=== PATIENT | female | born 2000 | race Caucasian/White ===

== ENCOUNTER → 2021-12-10 21:50 | Observation (INO) | END | disposition home or self-care (01) | LOC: 1NENULAB | PROVIDERS: ADMIT Obstetrics & Gynecology; ATTEND Obstetrics & Gynecology ==

== ENCOUNTER 2021-12-16 11:35 | Inpatient (IN) ==
[2021-12-16] MEDS ORDERED: Ondansetron 4 MG/2 ML VIAL IVP PRN (11:47)
[2021-12-16] MEDS ORDERED: Metoclopramide 10 MG/2 ML VIAL IVP PRN (11:47)
[2021-12-16] MEDS ORDERED: Famotidine 20 MG/2 ML VIAL IVP PRN (11:47)
[2021-12-16] MEDS ORDERED: Naloxone 0.4 MG/ML INJ IVP PRN (11:47)
[2021-12-16] MEDS ORDERED: Penicillin G Potassium 5,000,000 UNIT in 0.9 % Sodium Chloride Mini Bag 100 ML IVPB ONE (11:49)
[2021-12-16] MEDS ORDERED: Oxytocin 20 units/ LR 1000 mL 20 UNIT/1,000 ML BAG IVC SCH (12:00)
[2021-12-16 12:27] LABS: White Blood Count 16.6 K/mcL (4.3-11.1)
[2021-12-16 12:28] LABS: Basophils % 0.2 %; Eosinophils # 0.1 K/mcL (0.0-0.6); Eosinophils % 0.3 %; Hematocrit 32.9 % (35.3-44.9); Hemoglobin 10.7 g/dL (11.5-15.4); Immature Granulocytes % 0.9 % (0-4); Lymphocytes # 2.2 K/mcL (0.6-4.6); Lymphocytes % 13.5 %; Mean Corpuscular HGB Conc 32.5 g/dL (31.6-35.5); Mean Corpuscular Volume 82.9 fL (83.0-100.0); Mean Platelet Volume 10.3 fL (9.4-12.4); Monocytes # 0.6 K/mcL (0.0-1.3); Monocytes % 3.5 %; Neutrophils # 13.6 K/mcL (1.6-8.9); Platelet Count 422 K/mcL (140-400); Red Blood Count 3.97 M/mcL (3.82-4.97); Red Cell Distribution Width 15.4 % (11.5-14.5); Segmented Neutrophils % 81.6 %
[2021-12-16] MEDS: Ringers Solution, Lactated 1,000 ML IVC SCH ×2 (12:54→23:23)
[2021-12-16] MEDS ORDERED: *HR* Nalbuphine 10 MG/ML AMPUL IV PRN (13:02)
[2021-12-16] MEDS ORDERED: EPHEDrine 50 MG/ML VIAL IVP PRN (13:11)
[2021-12-16] MEDS ORDERED: *HR* FentaNYL (PF) 100 MCG/2 ML VIAL EP ONE (13:11)
[2021-12-16] MEDS ORDERED: Ropivacaine/PF 0.2% 20 ML VIAL EP ONE (13:11)
[2021-12-16 13:23] LABS: Amphetamine Screen,Urine Negative ng/mL (Cutoff=1000); Barbiturate Screen,Urine Negative ng/mL (Cutoff=200); Benzodiazepines Screen,Urine Negative ng/mL (Cutoff=200); Cannabinoid Screen,Urine Negative ng/mL (Cutoff = 50); Cocaine Screen,Urine Negative ng/mL (Cutoff= 300); Opiate Screen,Urine Negative ng/mL (Cutoff=300); Phencyclidine Screen,Urine Negative ng/mL (Cutoff=25)
[2021-12-16] MEDS: Penicillin G Potassium 2,500,000 UNIT/105 ML MLS IVPB SCH ×2 (16:06→22:23)
[2021-12-16] MEDS: Epidural Premix (fent/bupiv) 110 ML EP SCH (19:42)
[2021-12-17] MEDS: Epidural Premix (fent/bupiv) 110 ML EP SCH (00:07)
[2021-12-17] MEDS ORDERED: Acetaminophen 325 MG TABLET PO SCH (03:59)
[2021-12-17] MEDS ORDERED: Lanolin 7 G OINT...G. TP PRN (03:59)
[2021-12-17] MEDS ORDERED: Oxytocin 20 units/ LR 1000 mL 20 UNIT/1,000 ML BAG IVC SCH (03:59)
[2021-12-17] MEDS ORDERED: Measles/Mumps/Rubella Vacc 0.5 ML VIAL SQ PRN (03:59)
[2021-12-17] MEDS ORDERED: Benzocaine/Menthol 56 GM AEROSOL SPRAY TP PRN (03:59)
[2021-12-17] MEDS ORDERED: Ondansetron ODT 4 MG TAB.RAPDIS SL PRN (03:59)
[2021-12-17] MEDS: Ibuprofen 600 MG TABLET PO SCH ×3 (05:58→20:20)
[2021-12-17 06:11] VITALS: O2SAT 99
[2021-12-17 07:10] LABS: Basophils % 0.2 %; Hematocrit 28.1 % (35.3-44.9); Immature Granulocytes % 0.5 % (0-4); Lymphocytes # 1.7 K/mcL (0.6-4.6); Lymphocytes % 7.7 %; Mean Corpuscular HGB Conc 31.3 g/dL (31.6-35.5); Mean Corpuscular Hemoglobin 26.7 pg (28.0-33.3); Mean Corpuscular Volume 85.4 fL (83.0-100.0); Mean Platelet Volume 10.4 fL (9.4-12.4); Monocytes % 4.6 %; Neutrophils # 19.4 K/mcL (1.6-8.9); Platelet Count 341 K/mcL (140-400); Red Blood Count 3.29 M/mcL (3.82-4.97); Red Cell Distribution Width 15.6 % (11.5-14.5); White Blood Count 22.3 K/mcL (4.3-11.1)
[2021-12-17 07:15] LABS: Hemoglobin 8.8 g/dL (11.5-15.4)
[2021-12-17] MEDS: Prenatal Vit/FA 1 EACH TABLET PO SCH (08:27)
[2021-12-18] MEDS: Ibuprofen 600 MG TABLET PO SCH ×2 (04:02→10:29)
[2021-12-18 07:12] VITALS: BP 83/50; PULSE 83; TEMP 98.1
[2021-12-18] MEDS: Prenatal Vit/FA 1 EACH TABLET PO SCH (10:29)
== END 2021-12-18 12:16 | disposition home or self-care (01) | DRG 807 ==
LOC: 1NENULAB 11:35 → 1NENUOBS 12-17 03:30
PROVIDERS: ADMIT Obstetrics & Gynecology; ATTEND Obstetrics & Gynecology